=== PATIENT | male | born 1965 | race African-American/Black ===

== ENCOUNTER 2019-10-11 16:55 | Inpatient (IN) | payer MEDICAID, OTHER ==
[~2019-10-11] VITALS: Ht 182.9 cm; Wt 145.1 kg
[2019-10-11] MEDS ORDERED: ONDANSETRON HCL 4MG/2ML INJ IV STA (19:28)
[2019-10-11] MEDS ORDERED: SODIUM CHLORIDE 0.9% 500 ML IV ONE (19:45)
[2019-10-11] MEDS ORDERED: MECLIZINE 25MG TABLET PO ONE ×2 (19:45→22:45)
[2019-10-11 20:25] LABS: BASOPHILS % 0.2 % (0.0-2.0); EOSINOPHILS % 0.1 % (0.0-5.0); HEMATOCRIT. 45.4 % (42.0-52.0); HEMOGLOBIN. 15.4 g/dL (14.0-18.0); LYMPHOCYTES % 14.8 % (20.0-50.0); MEAN CORPUSCULAR HEMOGLOBIN 30.4 pg (28.0-32.0); MEAN CORPUSCULAR VOLUME 89.9 fL (80.0-94.0); MEAN PLATELET VOLUME 9.1 fl (7.4-10.4); MONOCYTES % 6.1 % (2.0-8.0); NEUTROPHILS % 78.8 % (40.0-76.0); PLATELET 192 x1000/uL (130-400); RED BLOOD CELL COUNT 5.06 mill/uL (4.7-6.1)
[2019-10-11 20:32] LABS: CHLORIDE 105 mEq/L (98-107)
[2019-10-12] MEDS ORDERED: DIAZEPAM 5 MG TABLET PO ONE (00:30)
[2019-10-12] MEDS ORDERED: SODIUM CHLORIDE 0.9% 1,000 ML IV ONE (00:30)
[2019-10-12 08:00] VITALS: BP 147/95
[2019-10-12] MEDS ORDERED: ACETAMINOPHEN 325MG TABLET PO PRN (10:45)
[2019-10-12] MEDS ORDERED: ONDANSETRON HCL 4MG/2ML INJ IV PRN (10:45)
[2019-10-12 11:00] VITALS: BP 140/84
[2019-10-12] MEDS: MECLIZINE 25MG TABLET PO PRN (11:46)
[2019-10-12 12:00] VITALS: BP 145/82
[2019-10-12 16:00] VITALS: BP 140/82
[2019-10-12 20:00] VITALS: BP 122/69
[2019-10-13] VITALS: BP 150/88
[2019-10-13] MEDS: MECLIZINE 25MG TABLET PO PRN ×2 (01:06→20:47)
[2019-10-13 04:00] VITALS: BP 154/107
[2019-10-13 05:18] LABS: CLARITY URINE CLEAR (CLEAR); COLOR URINE YELLOW (YELLOW); KETONES URINE NEGATIVE (NEGATIVE); LEUKOCYTE ESTERASE URINE NEGATIVE (NEGATIVE); NITRITE URINE NEGATIVE (NEGATIVE); OCCULT BLOOD URINE NEGATIVE (NEGATIVE); PH URINE 5.5 (4.5-8.0); PROTEIN URINE NEGATIVE (NEGATIVE); SPECIFIC GRAVITY URINE 1.017 (1.005-1.030)
[2019-10-13 05:55] LABS: *AMPHETAMINES SCREEN URINE NEGATIVE (NEGATIVE); *BARBITURATES SCREEN URINE NEGATIVE (NEGATIVE); *BENZODIAZEPINES SCREEN URINE NEGATIVE (NEGATIVE); *COCAINE SCREEN URINE NEGATIVE (NEGATIVE); CANNABINOID URINE SCREEN NEGATIVE (NEGATIVE); METHADONE URINE SCREEN NEGATIVE (NEGATIVE); OPIATES URINE SCREEN NEGATIVE (NEGATIVE); PHENCYCLIDINE URINE SCREEN NEGATIVE (NEGATIVE)
[2019-10-13 06:21] LABS: BASOPHILS % 0.5 % (0.0-2.0); EOSINOPHILS % 1.6 % (0.0-5.0); HEMATOCRIT. 41.5 % (42.0-52.0); HEMOGLOBIN. 14.4 g/dL (14.0-18.0); LYMPHOCYTES % 36.7 % (20.0-50.0); MEAN CORPUSCULAR HEMOGLOBIN 30.9 pg (28.0-32.0); MEAN CORPUSCULAR VOLUME 89.2 fL (80.0-94.0); MEAN PLATELET VOLUME 9.3 fl (7.4-10.4); MONOCYTES % 8.4 % (2.0-8.0); NEUTROPHILS % 52.8 % (40.0-76.0); PLATELET 183 x1000/uL (130-400); RED BLOOD CELL COUNT 4.65 mill/uL (4.7-6.1); RED CELL DISTRIBUTION WIDTH 14.1 % (11.6-14.6)
[2019-10-13 06:27] LABS: CHLORIDE 109 mEq/L (98-107)
[2019-10-13 08:00] VITALS: BP 153/96
[2019-10-13] MEDS ORDERED: AMLODIPINE 5MG TABLET PO SCH (09:15)
[2019-10-13 12:00] VITALS: BP 155/100
[2019-10-13 20:00] VITALS: BP 163/109
[2019-10-13] MEDS: AMLODIPINE 5MG TABLET PO SCH (20:47)
[2019-10-14] VITALS: BP 147/89
[2019-10-14 04:00] VITALS: BP 139/87
[2019-10-14 08:00] VITALS: BP 156/80
[2019-10-14] MEDS ORDERED: LORAZEPAM 1MG TABLET PO NR (08:00)
[2019-10-14] MEDS: AMLODIPINE 5MG TABLET PO SCH (09:27)
[2019-10-14] MEDS ORDERED: LOSA50TA41 MT (11:59)
[2019-10-14] MEDS ORDERED: AMLO10TA80 MT (11:59)
[2019-10-14] MEDS ORDERED: MECL-159 MT (11:59)
[2019-10-14] MEDS ORDERED: DIPH25CA83 MT (11:59)
[2019-10-14 12:00] VITALS: BP 132/102
[2019-10-14 14:20] VITALS: BP 132/102
== END 2019-10-14 15:15 | disposition home or self-care (01) | DRG 48 ==
LOC: ER 16:55 → 6EST 10-12 00:18 → ENRESERV 10-12 08:50
PROVIDERS: ADMIT Internal Medicine Nephrology; ATTEND Internal Medicine Nephrology
DX: G90.8 Other disorders of autonomic nervous system (principal); E66.01 Morbid (severe) obesity due to excess calories; I10 Essential (primary) hypertension; R26.9 Unspecified abnormalities of gait and mobility; E78.5 Hyperlipidemia, unspecified; Z68.41 Body mass index [BMI] 40.0-44.9, adult; Z59.0 Homelessness
CPT/HCPCS: 36415; 71045; 80048; 80053; 80061; 80305; 81003; 83036; 83880; 84443; 84484; 85025; 93005; 93306; 93880; 97162; 99285; J2405; J7030; J7040; J8597